=== PATIENT | female | born 2000 | race Caucasian/White ===

== ENCOUNTER → 2025-02-09 | Emergency (ER) | payer OTHER ==
[~2025-02-09] VITALS: Ht 170.2 cm; Wt 54.4 kg
[~2025-02-09] MED LIST: ANUSOL-HC30 G2 TOP; KETOROLAC TROMETHAMINE 30 MG VIAL IV ONE; KETOROLAC TROMETHAMINE 30 MG VIAL ONE; LIDOCAINE HCL 120 ML ML MM ONE; LIDOCAINE HCL VISCOUS 20MG/ML BLIST 15ML MM ONE; METHYLPREDNISOLONE SOD SUCC 125 MG VIAL IV ONE; METHYLPREDNISOLONE SOD SUCC 125 MG VIAL ONE; MIRALAX17 GM PO; NORFLEX100MG PO
== END | disposition home or self-care (01) ==
LOC: ER 10:14
DX: K64.8 Other hemorrhoids (principal); K62.89 Other specified diseases of anus and rectum